=== PATIENT | male | born 1945 | race American Indian/Alaskan Native ===

== ENCOUNTER 2016-09-05 06:17 | Inpatient (IN) | payer MEDICARE ==
[2016-09-01 08:56] VITALS: BMI 31.1
[2016-09-05] MEDS ORDERED: Lidocaine 1% w Epi 1:100,000 Inj ONE (07:19)
[2016-09-05] MEDS ORDERED: Bupivacaine 0.5% Inj(30mL) ONE ×2 (07:19→13:09)
[2016-09-05] MEDS ORDERED: Rocuronium 10 mg/ml (10 ml) ONE (07:27)
[2016-09-05] MEDS ORDERED: ePHEDrine 50 mg/ml Inj ONE (07:27)
[2016-09-05] MEDS ORDERED: Phenylephrine 10 mg/ml Inj ONE (07:27)
[2016-09-05] MEDS ORDERED: Lidocaine Hydrochloride 5 ML INJ ONE (07:27)
[2016-09-05] MEDS ORDERED: Propofol 10 mg/ml Inj (20 ML) ONE (07:28)
--- NOTE | 2016-09-05 07:38 | CP.PCM.HP ---
History of Present Illness - History of Present Illness History of Present Illness: 71M with left knee DJD failed conservative management and elected for total knee replacement. Patient had prior tibial fracture and osteomyelitis, which has resolved with negative WBC nuclear scan for infection 04/2016. Medical and cardiac clearance on chart, reviewed. Urinalysis repeated on admission PMH: afib, pacemaker 2014, HTN, DM xarelto held 08/29 former smoker Present on Admission - Present on Admission Any Indicators Present on Admission: No Review of Systems - Review of Systems All systems: reviewed and no additional remarkable complaints except - Musculoskeletal Musculoskeletal: As Per HPI Past Patient History - Infectious Disease Hx of Infectious Diseases: None - Past Medical History & Family History Past Medical History?: Yes - Past Social History Smoking Status: Never Smoked - CARDIAC Hx Cardiac Disorders: Yes (PACEMAKER) Hx Cardia Arrhythmia: Yes (A FIB BRADYCARDIA) Hx Hypercholesterolemia: Yes Hx Hypertension: Yes Hx Pacemaker: Yes Hx Peripheral Edema: Yes - PULMONARY Hx Respiratory Disorders: No - NEUROLOGICAL Hx Neurological Disorder: No - HEENT Hx HEENT Problems: Yes (RIGHT EYE LOSS OF SOME VISION DUE TO SMALL HEMORRHAGE) - RENAL Hx Chronic Kidney Disease: No - ENDOCRINE/METABOLIC Hx Endocrine Disorders: Yes Hx Diabetes Mellitus Type 2: Yes - HEMATOLOGICAL/ONCOLOGICAL Hx Blood Disorders: No - INTEGUMENTARY Hx Dermatological Problems: No - MUSCULOSKELETAL/RHEUMATOLOGICAL Hx Fractures: Yes (LEFT ANKLE LEG LEFT SHOULDER) - GASTROINTESTINAL Hx Gastrointestinal Disorders: No - GENITOURINARY/GYNECOLOGICAL Hx Genitourinary Disorders: No - PSYCHIATRIC Hx Psychophysiologic Disorder: No Hx Substance Use: No - SURGICAL HISTORY Hx Orthopedic Surgery: Yes (ANKLE) - ANESTHESIA Hx Anesthesia: Yes Hx Anesthesia Reactions: No Hx Malignant Hyperthermia: No Meds Allergies/Adverse Reactions: Allergies Allergy/AdvReac Type Severity Reaction Status Date / Time No Known Allergies Allergy Verified 12/27/14 15:27 Physical Exam - Constitutional Appears: Well, No Acute Distress - Respiratory Exam Respiratory Exam: NORMAL BREATHING PATTERN - Cardiovascular Exam Cardiovascular Exam: REGULAR RHYTHM - Extremities Exam Additional comments: +DP/PT pulses, no erythema, +moderate joint effusion, calves soft NT neg homans - Neurological Exam Neurological exam: Alert, Oriented x3 - Psychiatric Exam Psychiatric exam: Normal Affect, Normal Mood - Skin Skin Exam: Dry, Intact, Normal Color, Warm Results - Vital Signs Recent Vital Signs: Last Vital Signs Temp 97.7 F 09/05/16 07:31 Pulse 106 H 05/16/17 07:31 Resp 20 09/05/16 07:31 BP 116/81 09/05/16 07:31 Pulse Ox 98 09/05/16 07:31 - Labs Labs: Laboratory Results - last 24 hr 09/05/16 07:28 POC Glucose (mg/dL) 94 Assessment & Plan (1) Primary osteoarthritis of left knee Status: Acute (2) HTN (hypertension) Status: Acute (3) Diabetes Status: Acute
[2016-09-05] MEDS ORDERED: Etomidate 20 mg/10ml Inj IV ONE (07:43)
[2016-09-05] MEDS ORDERED: Bupivacaine Liposomal Inj 20 ml INFIL ONE (07:45)
[2016-09-05 07:47] LABS: INR 1.1
[2016-09-05 07:59] LABS: RBC URINE 93 /hpf (0-3); URINE BACTERIA OCC (<OCC); URINE BILIRUBIN NEGATIVE (NEGATIVE); URINE BLOOD 2+ (NEGATIVE); URINE COLOR Yellow (YELLOW); URINE GLUCOSE (UA) NORMAL (Normal); URINE KETONE NEGATIVE (NEGATIVE); URINE LEUKOCYTE ESTERASE 3+ Leu/uL (Negative); URINE PROTEIN 1+ mg/dL (NEGATIVE); URINE UROBILINOGEN NORMAL mg/dL (0.2-1.0); WBC URINE 240 /hpf (0-5)
[2016-09-05] MEDS ORDERED: Lactated Ringer's 1,000 ML IV ONE ×2 (08:00→10:23)
[2016-09-05] MEDS ORDERED: ceFAZolin IV 2 gm in Dextrose 1 GM/50 ML BAG IVPB ONE (08:06)
[2016-09-05] MEDS ORDERED: cefTRIAXone IV 1 gm in Dextros 50 ML IVPB ONE (08:11)
[2016-09-05] MEDS ORDERED: Sodium Chloride 0.9% 60 ML IV ONE (08:26)
[2016-09-05] MEDS ORDERED: Vancomycin 1 g Inj ONE ×2 (08:46→09:26)
[2016-09-05] MEDS: Bacitracin 150,000 UNIT in Sodium Chloride 0.9% Irrig 3,000 ML IR SCH ×2 (09:00→10:00)
[2016-09-05] MEDS ORDERED: Morphine 4 MG/ML VIAL ONE ×2 (10:02→11:15)
[2016-09-05] MEDS ORDERED: Lactated Ringer's 1,000 ML IV SCH (10:30)
[2016-09-05] MEDS ORDERED: Neostigmine Methylsulfate 3mg/3ml Syringe IV ONE (10:48)
--- NOTE | 2016-09-05 11:31 | PCM.SURG1 ---
Surgeon's Initial Post Op Note - Surgeon's Notes Surgeon: Sheila NEGRETE MD Research Director: She WANG PA-C Type of Anesthesia: General Endo Anesthesia Administered By: dR. GARCIA Pre-Operative Diagnosis: LEFT KNEE DJD Operative Findings: TOURNIQUET: 97MIN @300mmHg Post-Operative Diagnosis: same Operation Performed: Left total knee replacement Specimen/Specimens Removed: bone left knee Estimated Blood Loss: EBL {In ML}: 120 Blood Products Given: N/A Drains Used: Hemovac, Wound Vac Post-Op Condition: Fair Date of Surgery/Procedure: 09/05/16 Time of Surgery/Procedure: 11:31
[2016-09-05] MEDS ORDERED: Oxycodone/Acetaminophen 5/325 mg Tab PO PRN (11:32)
[2016-09-05] MEDS: HYDROmorphone 0.5 mg/0.5 ml ISec IVP PRN ×3 (11:42→21:06)
[2016-09-05] MEDS ORDERED: ceFAZolin IV 2 gm in Dextrose 50 ML IVPB SCH (11:45)
--- NOTE | 2016-09-05 12:19 | OP ---
PROCEDURE DATE: 09/05/2016 PREOPERATIVE DIAGNOSIS: Left knee arthritis. POSTOPERATIVE DIAGNOSIS: Left knee arthritis. PROCEDURE: Left total knee arthroplasty. SURGEON: Israel Byrne M.D. EMPLOYEE RELATIONS DIRECTOR: LENORE Fields, a third year medical student. Pasquale Townsend was scrubbed throughout t he case and assisted with patient positioning, retraction and wound closure. ANESTHESIA: General. COMPLICATIONS: None. ESTIMATED BLOOD LOSS: 120 mL. TOURNIQUET TIME: 97 minutes at 300 mmHg. Biomet Vanguard total knee system. INDICATIONS FOR PROCEDURE: This is a 71-year-old gentleman with longstanding left knee pain. PAST MEDICAL HISTORY: Significant for previous proximal tibia fracture. The patient subsequently de veloped progressive pain and deformity of the left lower extremity. Radiographic examination consist ent with advanced degenerative joint disease with a proximal third deformity of the tibial shaft. Th e patient underwent an infection workup and once no evidence of any infection was appreciated, recomm endations were for a left total knee arthroplasty. Risks, benefits and alternatives of the procedure were discussed with the patient including the possibility that the infection and informed consent wa s obtained. OPERATIVE PROCEDURE: After surgical site was found and verified in preoperative holding area, the pa tient was taken to the operating room and placed supine on the operating room table. After administr ation of general anesthesia, the patient received 2 grams of Ancef as well as 1 gram of Rocephin. A De Luna catheter was inserted. A tourniquet was placed about the left thigh. Care was taken to make s ure all bony prominences were well padded and protected and the Venodyne boot was placed on the nonop erative extremity and the left lower extremity was prepped and draped in usual sterile fashion. Left lower extremity was exsanguinated and tourniquet was inflated. Approximately an 11 cm longitudinal midline incision was made. Soft tissue was dissected sharply down to the fascia. The medial parapat ellar arthrotomy was performed exposing the knee joint. Medial and lateral menisci, the anterior fat pad, ACL and PCL were all resected. Once the knee joint was exposed, a step drill was used to drill into the medullary canal of the distal femur and intramedullary distal femoral cutting block was inse rted and pinned into place. Our distal femoral resection was performed and our femoral component was sized. The 4-in-1 cut block was pinned into place and anterior and posterior cuts were performed. Next, a box cut was performed on the femur. Attention was directed to the tibia. Extramedullary tib ial guide was placed localizing the of the ankle. Satisfied with our alignment, our tibial res ection was performed. Our flexion and extension gaps were checked. The patient was noted to be tigh t medially and this was corrected by performing a soft tissue release. Once this was done, the patie nt was noted to be well balanced and stable with full extension and flexion. At this point, our tibi al plate was sized and being careful to maintain proper rotation, the medullary canal of the proximal tibia was reamed and punched with the cruciate punch. With trial tibia, trial bearing and a trial f emur in place, the knee was taken through range of motion and was noted to be stable throughout. Att ention was directed to the patella. Thickness of patella was measured and our patellar resection was performed. Patella button was sized and the holes for our patella button were then drilled. Trial patella was inserted and the knee was taken through a range of motion and patella was noted to track normally. At this point, all the trial components were removed and the knee joint was pulse lavaged with antibiotic saline solution. The bony surfaces were dried and the actual tibial, femoral and pat ellar components were cemented into place. Care was taken to remove all excess cement. Once the rasta ent had hardened, trial bearing was removed. At this point, the wound was inspected for any debris a nd the tourniquet was deflated to assess for any bleeding. Any obvious bleeding was cauterized. The wound was then pulse lavaged once again and the actual bearing was inserted into place and locked wi th a cross pin. A medium Hemovac drain was inserted and arthrotomy was closed using #1 Vicryl suture . Subcutaneous tissue was closed using 2-0 Vicryl suture and the skin was closed using jayda. A w ound VAC was applied over the incision and a sterile dressing was placed. The patient was awakened f rom the procedure, taken to recovery room in stable condition. Israel Byrne MD cc: [id number] TT: 09/05/2016 12:18:57 rn
--- NOTE | 2016-09-05 12:35 | RAD ---
Indication: Status post TKR Comparison: Noncontrast left lower extremity CT performed 04/27/16 Two views, left knee Findings: The patient is status post left knee total arthroplasty. Alignment appears satisfactory. Deformity involving the proximal tibia re-identified. Vascular calcifications. Soft tissue swelling, drainage catheter, subcutaneous emphysema, and surgical jayda compatible with recent postoperative history Impression: Status post left arthroplasty as above.
[2016-09-05] MEDS: Sodium Chloride 0.9% 1,000 ML IV SCH (16:00)
[2016-09-05 19:37] VITALS: RESP 20
[2016-09-06] MEDS: Sodium Chloride 0.9% 1,000 ML IV SCH ×4 (00:15→18:39)
[2016-09-06] MEDS: HYDROmorphone 0.5 mg/0.5 ml ISec IVP PRN ×4 (01:10→20:17)
[2016-09-06] MEDS: Oxycodone/Acetaminophen 5/325 mg Tab PO PRN (03:20)
--- NOTE | 2016-09-06 07:17 | CP.PCM.PN ---
Subjective - Date & Time of Evaluation Date of Evaluation: 09/06/16 Time of Evaluation: 07:16 - Subjective Subjective: Patient states he had a lot of pain overnight and did not sleep at all. He says pain medication works but when it wears off he has a lot of pain. He denies CP/ SOB/dizziness/numbness/tingling. Had nausea yesterday, but has resolved. Objective - Vital Signs/Intake and Output Vital Signs (last 24 hours): Temp Pulse Resp BP Pulse Ox 99.4 F 101 H 20 135/82 96 09/06/16 04:10 09/06/16 04:10 09/06/16 04:10 09/06/16 04:10 09/06/16 04:10 Intake and Output: 09/06/16 09/06/16 06:59 18:59 Output Total 2400 Balance -2400 - Medications Medications: Current Medications Acetaminophen (Tylenol 325mg Tab) 650 mg PO Q4 PRN PRN Reason: Fever 101 degrees fahrenheit Aspirin (Ecotrin) 81 mg PO DAILY [facility] Docusate Sodium (Colace) 100 mg PO BID [facility] Last Admin: 09/05/16 21:07 Dose: 100 mg Furosemide (Lasix) 40 mg PO DAILY [facility] Glipizide (Glucotrol Xl) 5 mg PO DAILY [facility] Hydralazine HCl (Apresoline) 50 mg PO DAILY [facility] Hydromorphone HCl (Dilaudid) 0.5 mg IVP Q4H PRN PRN Reason: Pain, severe (8-10) Last Admin: 09/06/16 05:16 Dose: 0.5 mg Lactated Ringer's (Lactated Ringer's) 1,000 mls @ 80 mls/hr IV .[id number] [facility] Sodium Chloride (Sodium Chloride 0.9%) 1,000 mls @ 80 mls/hr IV .[id number] [facility] Last Admin: 09/06/16 05:18 Dose: 80 mls/hr Lisinopril (Zestril) 40 mg PO DAILY [facility] Metformin HCl (Glucophage) 1,000 mg PO DAILY@0800 [facility] Metoprolol Tartrate (Lopressor) 100 mg PO BID [facility] Last Admin: 09/05/16 21:07 Dose: 100 mg Ondansetron HCl (Zofran Inj) 4 mg IVP Q6H PRN PRN Reason: Nausea/Vomiting Last Admin: 09/05/16 17:17 Dose: 4 mg Oxycodone/Acetaminophen (Percocet 5/325 Mg Tab) 2 tab PO Q4H PRN PRN Reason: Pain, moderate (4-7) Stop: 09/08/16 11:33 Last Admin: 09/06/16 03:20 Dose: 2 tab Rivaroxaban (Xarelto) 20 mg PO DAILY [facility] Rosuvastatin Calcium (Crestor) 20 mg PO HS [facility] - Labs Labs: PT 12.0 SECONDS (9.7-12.2) 09/05/16 07:32 INR 1.1 09/05/16 07:32 APTT 34 SECONDS (21-34) 09/05/16 07:32 - Extremities Exam Additional comments: LLE: +ROM ankle/toes, snesation intact, +DP/PT pulses, calves soft NT neg homans. Dressing intact. hemovac 50cc last two shifts Assessment and Plan (1) Primary osteoarthritis of left knee Assessment & Plan: POD#1 s/p left TKR -f/u labs -d/c planning -PT VTE proph will restart xarelto today -d/w Dr. Byrne, agrees with above Status: Acute (2) HTN (hypertension) Status: Acute (3) Diabetes Status: Acute
[2016-09-06 07:29] LABS: HEMATOCRIT 30.4 % (35.0-51.0); MEAN CELL VOLUME 77.2 fL (80.0-94.0); MEAN CORPUSCULAR HEMOGLOBIN 24.6 pg (27.0-31.0); MEAN CORPUSCULAR HGB CONC 31.9 g/dL (33.0-37.0); MEAN PLATELET VOLUME 9.4 fL (7.2-11.7); RED CELL DISTRIBUTION WIDTH 19.1 % (11.5-14.5)
[2016-09-06 07:32] LABS: WHITE BLOOD COUNT 10.2 K/uL (4.8-10.8)
[2016-09-06 07:54] LABS: CHLORIDE 99 mmol/L (98-107); SODIUM 135 mmol/L (132-148)
[2016-09-06 07:55] LABS: POTASSIUM 3.9 mmol/L (3.6-5.2)
[2016-09-06 07:57] LABS: GFR AFRICAN-AMERICAN > 60
[2016-09-06 07:58] LABS: BLOOD UREA NITROGEN 14 mg/dL (9-20); CALCIUM 8.1 mg/dl (8.6-10.4); CARBON DIOXIDE 25 mmol/L (22-30); GLUCOSE,RANDOM 121 mg/dL (75-110)
[2016-09-06 09:04] VITALS: O2SAT 95
--- NOTE | 2016-09-06 09:04 | CP.PCM.PN ---
Subjective - Date & Time of Evaluation Date of Evaluation: 09/06/16 Time of Evaluation: 09:03 - Subjective Subjective: Agree with PA note. VSS LLE: dressing intact Hemovac in place NVI distally Hg 9.7 POD 1 DVT prophylaxis PT D/C planning Objective - Vital Signs/Intake and Output Vital Signs (last 24 hours): Temp Pulse Resp BP Pulse Ox 99.4 F 101 H 20 135/82 96 09/06/16 04:10 09/06/16 04:10 09/06/16 04:10 09/06/16 04:10 09/06/16 04:10 Intake and Output: 09/06/16 09/06/16 06:59 18:59 Output Total 2400 Balance -2400 - Medications Medications: Current Medications Acetaminophen (Tylenol 325mg Tab) 650 mg PO Q4 PRN PRN Reason: Fever 101 degrees fahrenheit Aspirin (Ecotrin) 81 mg PO DAILY [facility] Docusate Sodium (Colace) 100 mg PO BID [facility] Last Admin: 09/05/16 21:07 Dose: 100 mg Furosemide (Lasix) 40 mg PO DAILY [facility] Glipizide (Glucotrol Xl) 5 mg PO DAILY [facility] Hydralazine HCl (Apresoline) 50 mg PO DAILY [facility] Hydromorphone HCl (Dilaudid) 0.5 mg IVP Q4H PRN PRN Reason: Pain, severe (8-10) Last Admin: 09/06/16 05:16 Dose: 0.5 mg Lactated Ringer's (Lactated Ringer's) 1,000 mls @ 80 mls/hr IV .[id number] [facility] Sodium Chloride (Sodium Chloride 0.9%) 1,000 mls @ 80 mls/hr IV .[id number] [facility] Last Admin: 09/06/16 05:18 Dose: 80 mls/hr Lisinopril (Zestril) 40 mg PO DAILY [facility] Metformin HCl (Glucophage) 1,000 mg PO DAILY@0800 [facility] Metoprolol Tartrate (Lopressor) 100 mg PO BID [facility] Last Admin: 09/05/16 21:07 Dose: 100 mg Ondansetron HCl (Zofran Inj) 4 mg IVP Q6H PRN PRN Reason: Nausea/Vomiting Last Admin: 09/05/16 17:17 Dose: 4 mg Oxycodone/Acetaminophen (Percocet 5/325 Mg Tab) 2 tab PO Q4H PRN PRN Reason: Pain, moderate (4-7) Stop: 09/08/16 11:33 Last Admin: 09/06/16 03:20 Dose: 2 tab Rivaroxaban (Xarelto) 20 mg PO DAILY [facility] Rosuvastatin Calcium (Crestor) 20 mg PO HS [facility] - Labs Labs: 09/06/16 07:17 09/06/16 07:17 PT 12.0 SECONDS (9.7-12.2) 09/05/16 07:32 INR 1.1 09/05/16 07:32 APTT 34 SECONDS (21-34) 09/05/16 07:32
[2016-09-06] MEDS ORDERED: GlipiZIDE 5 mg SR Tab PO SCH (10:00)
--- NOTE | 2016-09-06 11:07 | CP.PCM.CON ---
History of Present Illness - History of Present Illness History of Present Illness: This is a case of a 71 years ild male post-left knee replacement which was done yesterday. Patient is a known case of Niddm, CAD, Atial fibrillation and hypertension. He was on Xarelton pre-op and held for about 7 days prior to sugery. Patient tolerated the surgery very well . Review of Systems - Review of Systems Systems not reviewed;Unavailable: Acuity of Condition - Cardiovascular Cardiovascular: Irregular Heart Rhythm - Musculoskeletal Additional comments: Severe pain at the knees necisitating surger for a knee replacement. Past Patient History - Infectious Disease Hx of Infectious Diseases: None - Past Medical History & Family History Past Medical History?: Yes - Past Social History Smoking Status: Former Smoker - CARDIAC Hx Cardiac Disorders: Yes (PACEMAKER) Hx Cardia Arrhythmia: Yes (Atial fibrillation) Hx Hypercholesterolemia: Yes Hx Hypertension: Yes Hx Pacemaker: Yes Hx Peripheral Edema: Yes - PULMONARY Hx Respiratory Disorders: No - NEUROLOGICAL Hx Neurological Disorder: No - HEENT Hx HEENT Problems: Yes (RIGHT EYE LOSS OF SOME VISION DUE TO SMALL HEMORRHAGE) - RENAL Hx Chronic Kidney Disease: No - ENDOCRINE/METABOLIC Hx Endocrine Disorders: Yes Hx Diabetes Mellitus Type 2: Yes - HEMATOLOGICAL/ONCOLOGICAL Hx Blood Disorders: No - INTEGUMENTARY Hx Dermatological Problems: No - MUSCULOSKELETAL/RHEUMATOLOGICAL Hx Musculoskeletal Disorders: Yes Hx Degenerative Joint Disease: Yes (knees severe oasteoarthritis.) Hx Fractures: Yes (LEFT ANKLE LEG LEFT SHOULDER) Hx Osteoarthritis: Yes - GASTROINTESTINAL Hx Gastrointestinal Disorders: No - GENITOURINARY/GYNECOLOGICAL Hx Genitourinary Disorders: No - PSYCHIATRIC Hx Psychophysiologic Disorder: No Hx Substance Use: No - SURGICAL HISTORY Hx Orthopedic Surgery: Yes (ANKLE) Other/Comment: right arm stub wounds., pace maker insertion. - ANESTHESIA Hx Anesthesia: Yes Hx Anesthesia Reactions: No Hx Malignant Hyperthermia: No Has any member of the family had a problem w/ anesthesia?: No Meds Allergies/Adverse Reactions: Allergies Allergy/AdvReac Type Severity Reaction Status Date / Time No Known Allergies Allergy Verified 12/27/14 15:27 - Medications Medications: Current Medications Acetaminophen (Tylenol 325mg Tab) 650 mg PO Q4 PRN PRN Reason: Fever 101 degrees fahrenheit Aspirin (Ecotrin) 81 mg PO DAILY [facility] Last Admin: 09/06/16 10:46 Dose: 81 mg Docusate Sodium (Colace) 100 mg PO BID [facility] Last Admin: 09/06/16 10:46 Dose: 100 mg Enoxaparin Sodium (Lovenox) 40 mg SC Q12 [facility] Furosemide (Lasix) 40 mg PO DAILY [facility] Last Admin: 09/06/16 10:45 Dose: 40 mg Glipizide (Glucotrol Xl) 5 mg PO DAILY [facility] Last Admin: 09/06/16 10:41 Dose: 5 mg Hydralazine HCl (Apresoline) 50 mg PO DAILY [facility] Last Admin: 09/06/16 10:45 Dose: 50 mg Hydromorphone HCl (Dilaudid) 0.5 mg IVP Q4H PRN PRN Reason: Pain, severe (8-10) Last Admin: 09/06/16 05:16 Dose: 0.5 mg Lactated Ringer's (Lactated Ringer's) 1,000 mls @ 80 mls/hr IV .[id number] [facility] Sodium Chloride (Sodium Chloride 0.9%) 1,000 mls @ 80 mls/hr IV .[id number] [facility] Last Admin: 09/06/16 05:18 Dose: 80 mls/hr Lisinopril (Zestril) 40 mg PO DAILY [facility] Last Admin: 09/06/16 10:41 Dose: 40 mg Metformin HCl (Glucophage) 1,000 mg PO DAILY@0800 [facility] Metoprolol Tartrate (Lopressor) 100 mg PO BID [facility] Last Admin: 09/06/16 10:46 Dose: 100 mg Ondansetron HCl (Zofran Inj) 4 mg IVP Q6H PRN PRN Reason: Nausea/Vomiting Last Admin: 09/05/16 17:17 Dose: 4 mg Oxycodone/Acetaminophen (Percocet 5/325 Mg Tab) 2 tab PO Q4H PRN PRN Reason: Pain, moderate (4-7) Stop: 09/08/16 11:33 Last Admin: 09/06/16 03:20 Dose: 2 tab Rivaroxaban (Xarelto) 20 mg PO DAILY [facility] Last Admin: 09/06/16 10:48 Dose: Not Given Rosuvastatin Calcium (Crestor) 20 mg PO [facility] Physical Exam - Constitutional Appears: Non-toxic Additional comments: Post-op in pain. - Head Exam Head Exam: ATRAUMATIC, NORMAL INSPECTION, NORMOCEPHALIC - Eye Exam Additional comments: Left eye decreased vision sec to hge. - ENT Exam ENT Exam: Normal External Ear Exam - Neck Exam Neck exam: Positive for: Full Rom - Respiratory Exam Respiratory Exam: Clear to Auscultation Bilateral, NORMAL BREATHING PATTERN - Cardiovascular Exam Cardiovascular Exam: Irregular Rhythm, +S1, +S2 - GI/Abdominal Exam GI & Abdominal Exam: Normal Bowel Sounds, Soft - Rectal Exam Rectal Exam: Deferred - Extremities Exam Additional comments: Left lower extremity in a cast with bloody drain. - Back Exam Back exam: FULL ROM, NORMAL INSPECTION - Neurological Exam Neurological exam: Alert, CN II-XII Intact, Oriented x3, Reflexes Normal - Psychiatric Exam Psychiatric exam: Normal Affect, Normal Mood - Skin Skin Exam: Dry, Intact, Normal Color, Warm Results - Vital Signs Recent Vital Signs: Last Vital Signs Temp 98.2 F 09/06/16 09:03 Pulse 104 H 09/06/16 09:03 Resp 20 09/06/16 09:03 BP 119/73 09/06/16 10:45 Pulse Ox 95 09/06/16 09:03 - Labs Result Diagrams: 09/06/16 07:17 09/06/16 07:17 Labs: Laboratory Results - last 24 hr 09/05/16 09/05/16 09/05/16 11:55 16:27 20:57 WBC RBC Hgb Hct MCV MCH MCHC RDW Plt Count MPV Sodium Potassium Chloride Carbon Dioxide Anion Gap BUN Creatinine Est GFR ( Amer) Est GFR (Non-Af Amer) POC Glucose (mg/dL) 133 H 88 146 H Random Glucose Calcium 09/06/16 09/06/16 09/06/16 06:45 07:17 07:17 WBC 10.2 D RBC 3.93 L Hgb 9.7 L Hct 30.4 L MCV 77.2 L MCH 24.6 L MCHC 31.9 L RDW 19.1 H Plt Count 226 MPV 9.4 Sodium 135 Potassium 3.9 Chloride 99 Carbon Dioxide 25 Anion Gap 15 BUN 14 Creatinine 1.0 Est GFR ( Amer) > 60 Est GFR (Non-Af Amer) > 60 POC Glucose (mg/dL) 132 H Random Glucose 121 H Calcium 8.1 L Assessment & Plan (1) Coronary artery disease Status: Chronic (2) Primary osteoarthritis of left knee Status: Chronic (3) Atrial fibrillation Status: Chronic (4) DM type 2 (diabetes mellitus, type 2) Status: Chronic (5) HTN (hypertension) Status: Chronic - Assessment and Plan (Free Text) Assessment: Status-acute Plan: Plan: Continue Metformin, Glucotrol, Lisinopril, Metroprolol, Lasix, . Hold off Xarelto for now. Will start on Lovenox.subQ. - Date & Time Date: 09/06/16 Time: 11:30
[2016-09-06 15:19] VITALS: BP 135/70; PULSE 112; TEMP 98.9
[2016-09-06] MEDS ORDERED: Enoxaparin 40 mg Syringe SC SCH (22:00)
[2016-09-07] MEDS: Oxycodone/Acetaminophen 5/325 mg Tab PO PRN (01:25)
[2016-09-07 07:08] LABS: CHLORIDE 102 mmol/L (98-107); POTASSIUM 3.9 mmol/L (3.6-5.2); SODIUM 137 mmol/L (132-148)
[2016-09-07 07:10] LABS: BLOOD UREA NITROGEN 15 mg/dL (9-20); CALCIUM 8.6 mg/dl (8.6-10.4); CARBON DIOXIDE 23 mmol/L (22-30); GFR AFRICAN-AMERICAN > 60; GLUCOSE,RANDOM 115 mg/dL (75-110)
[2016-09-07 07:50] LABS: BASO % 0.2 % (0.0-2.0); EOS % 0.1 % (0.0-4.0); HEMATOCRIT 29.9 % (35.0-51.0); LYMPH # 1.6 K/uL (1.0-4.3); LYMPH % 13.2 % (20.0-40.0); MEAN CELL VOLUME 78.3 fL (80.0-94.0); MEAN CORPUSCULAR HEMOGLOBIN 24.6 pg (27.0-31.0); MEAN CORPUSCULAR HGB CONC 31.4 g/dL (33.0-37.0); MEAN PLATELET VOLUME 10.2 fL (7.2-11.7); MONO # 1.2 K/uL (0.0-0.8); MONO % 9.7 % (0.0-10.0); RED CELL DISTRIBUTION WIDTH 19.5 % (11.5-14.5); WHITE BLOOD COUNT 12.2 K/uL (4.8-10.8)
--- NOTE | 2016-09-08 08:24 | CP.PCM.DIS ---
Provider - Provider Date of Admission: 09/05/16 06:17 Attending physician: Israel Byrne MD Primary care physician: Dr. Kelly Lou Consults: Dr. Klely Lou Time Spent in preparation of Discharge (in minutes): 5 Diagnosis - Discharge Diagnosis (1) Primary osteoarthritis of left knee Status: Chronic (2) HTN (hypertension) Status: Chronic (3) Diabetes Status: Acute Hospital Course - Lab Results Lab Results: Micro Results 09/05/16 Unknown Urine Urine Culture - Final No Growth (<1,000 CFU/ML) Most Recent Lab Values WBC 12.2 K/uL (4.8-10.8) H 09/07/16 04:00 RBC 3.82 Mil/uL (4.40-5.90) L 09/07/16 04:00 Hgb 9.4 g/dL (12.0-18.0) L 09/07/16 04:00 Hct 29.9 % (35.0-51.0) L 09/07/16 04:00 MCV 78.3 fL (80.0-94.0) L 09/07/16 04:00 MCH 24.6 pg (27.0-31.0) L 09/07/16 04:00 MCHC 31.4 g/dL (33.0-37.0) L 09/07/16 04:00 RDW 19.5 % (11.5-14.5) H 09/07/16 04:00 Plt Count 210 K/uL (130-400) 09/07/16 04:00 MPV 10.2 fL (7.2-11.7) 09/07/16 04:00 Neut % (Auto) 76.8 % (50.0-75.0) H 09/07/16 04:00 Lymph % (Auto) 13.2 % (20.0-40.0) L 09/07/16 04:00 Norton % (Auto) 9.7 % (0.0-10.0) 09/07/16 04:00 Eos % (Auto) 0.1 % (0.0-4.0) 09/07/16 04:00 Baso % (Auto) 0.2 % (0.0-2.0) 09/07/16 04:00 Neut # 9.3 K/uL (1.8-7.0) H 09/07/16 04:00 Lymph # 1.6 K/uL (1.0-4.3) 09/07/16 04:00 Norton # 1.2 K/uL (0.0-0.8) H 09/07/16 04:00 Eos # 0.0 K/uL (0.0-0.7) 09/07/16 04:00 Baso # 0.0 K/uL (0.0-0.2) 09/07/16 04:00 PT 12.0 SECONDS (9.7-12.2) 09/05/16 07:32 INR 1.1 09/05/16 07:32 APTT 34 SECONDS (21-34) 09/05/16 07:32 Sodium 137 mmol/L (132-148) 09/07/16 04:00 Potassium 3.9 mmol/L (3.6-5.2) 09/07/16 04:00 Chloride 102 mmol/L (98-107) 09/07/16 04:00 Carbon Dioxide 23 mmol/L (22-30) 09/07/16 04:00 Anion Gap 16 (10-20) 09/07/16 04:00 BUN 15 mg/dL (9-20) 09/07/16 04:00 Creatinine 1.0 MG/DL (0.8-1.5) 09/07/16 04:00 Est GFR ( Amer) > 60 09/07/16 04:00 Est GFR (Non-Af Amer) > 60 09/07/16 04:00 POC Glucose (mg/dL) 150 mg/dL (65-110) H 09/07/16 17:40 Random Glucose 115 mg/dL (75-110) H 09/07/16 04:00 Calcium 8.6 mg/dl (8.6-10.4) 09/07/16 04:00 Urine Color Yellow (YELLOW) 09/05/16 07:40 Urine Clarity Hazy (Clear) 09/05/16 07:40 Urine pH 5.0 (5.0-8.0) 09/05/16 07:40 Ur Specific Ola 1.023 (1.003-1.030) 09/05/16 07:40 Urine Protein 1+ mg/dL (NEGATIVE) H 09/05/16 07:40 Urine Glucose (UA) Normal mg/dL (Normal) 09/05/16 07:40 Urine Ketones Negative mg/dL (NEGATIVE) 09/05/16 07:40 Urine Blood 2+ (NEGATIVE) H 09/05/16 07:40 Urine Nitrate Negative (NEGATIVE) 09/05/16 07:40 Urine Bilirubin Negative (NEGATIVE) 09/05/16 07:40 Urine Urobilinogen Normal mg/dL (0.2-1.0) 09/05/16 07:40 Ur Leukocyte Esterase 3+ Yobani/uL (Negative) H 09/05/16 07:40 Urine WBC (Auto) 240 /hpf (0-5) H 09/05/16 07:40 Urine RBC (Auto) 93 /hpf (0-3) H 09/05/16 07:40 Ur Squamous Epith Cells 2 /hpf (0-5) 09/05/16 07:40 Urine Bacteria Occ (<OCC) H 09/05/16 07:40 Blood Type O POSITIVE 09/05/16 07:32 Antibody Screen Negative 09/05/16 07:32 - Hospital Course Hospital Course: 71M with PMH: HTN, DM, left knee osteoarthritis failed conservative management and elected for TKR. Postoperative imaging demonstrated acceptable position of prosthesis. Medical consultation was requested for post operative medical management. HTN and DM were controlled throughout admission. Patients post operative course was complicated by acute blood loss anemia, hemodynamically stable and well tolerated, no treatment needed. Patient tolerated PT/OT well. Patient received VTE prophylaxis in the form of lovenox 30mg SQ q12h and venodynes. PT was discharged to [facility], and continued on home medications as well as the lovenox. Patient was WBAT LLE, ambulating with walker, and given instructions for dressing change/removal of wound vac on POD#7, and to f/u Dr. Byrne within 2 weeks. Discharge Exam - Head Exam Head Exam: ATRAUMATIC, NORMAL INSPECTION, NORMOCEPHALIC Discharge Plan - Follow Up Plan Condition: GOOD Disposition: TRANSF TO SNF
== END 2016-09-07 12:20 | DRG 470 ==
LOC: C.9S 06:17 → C.6T 18:50
PROVIDERS: ADMIT Orthopaedic Surgery; ATTEND Orthopaedic Surgery
PROC: 0SRD0J9 Replacement of Left Knee Joint with Synthetic Substitute, Cemented, Open Approach (ICD-10-PCS; principal; 2016-09-05 07:45)
DX: M17.12 Unilateral primary osteoarthritis, left knee (principal); I48.91 Unspecified atrial fibrillation; E11.9 Type 2 diabetes mellitus without complications; I10 Essential (primary) hypertension; I25.10 Atherosclerotic heart disease of native coronary artery without angina pectoris; Z95.0 Presence of cardiac pacemaker; Z87.891 Personal history of nicotine dependence

== ENCOUNTER 2017-04-02 06:20 | Day surgery (SDC) | payer MEDICARE ==
[2017-04-02 07:02] VITALS: BMI 32.5
[2017-04-02] MEDS ORDERED: Lidocaine Hydrochloride 5 ML INJ ONE (08:58)
[2017-04-02] MEDS ORDERED: Propofol 10 mg/ml Inj (20 ML) ONE (08:58)
[2017-04-02] MEDS ORDERED: Lactated Ringer's 1,000 ML IV ONE (09:05)
--- NOTE | 2017-04-02 09:06 | CP.SDSHP ---
Same Day Surgery H & P - History Proposed Procedure: Screening colonoscopy Pre-Op Diagnosis: Screening for colorectal cancer - Previous Medical/Surgical History Cardiac: Hypertension, Arrhythmia Endocrine/Metabolic: Diabetes Previous Surgical History: Pacemaker, left knee operation - Allergies Allergies: Allergies No Known Allergies Allergy (Verified 12/27/14 15:27) - Current Medications Current Medications: See reconciliation sheet - Physical Exam General Appearance: WD WN male in NAD Vital Signs: Vital Signs 04/02/17 07:02 Temperature 96.9 F L Pulse Rate 78 Respiratory 18 Rate Blood Pressure 139/94 H O2 Sat by Pulse 98 Oximetry Mental Status: Alert & Oriented x3 Neuro: WNL Heart: WNL Lungs: WNL GI: WNL - {Optional Preform as Required} Abdomen: WNL - Impression Impression: Screening for colorectal cancer Pt. Evaluated Today:Candidate for Anesthesia & Procedure: Yes - Date & Time Date: 04/02/17 Time: 09:06 Short Stay Discharge - Short Stay Discharge Admitting Diagnosis/Reason for Visit: ENCOUNTER FOR SCREENING FOR MALIGNANT NEOPLASM OF Disposition: HOME/ ROUTINE
[2017-04-02 09:55] VITALS: TEMP 98
[2017-04-02 10:28] VITALS: O2SAT 98
[2017-04-02 10:31] VITALS: BP 112/79; PULSE 82; RESP 20
== END 2017-04-02 11:25 | disposition home or self-care (01) ==
LOC: C.ENDO 06:20
PROVIDERS: ATTEND Internal Medicine Gastroenterology
DX: Z12.11 Encounter for screening for malignant neoplasm of colon (principal); K63.5 Polyp of colon; K64.0 First degree hemorrhoids; I10 Essential (primary) hypertension; E11.9 Type 2 diabetes mellitus without complications; Z95.0 Presence of cardiac pacemaker
CPT/HCPCS: 45385; 82948; 88305; J2704; J7120